=== PATIENT | female | born 1965 | race Caucasian/White ===

== ENCOUNTER 2017-07-27 19:21 | Emergency (ER) | END 2017-07-27 21:46 | disposition home or self-care (01) ==

== ENCOUNTER 2018-05-29 11:44 | Emergency (ER) | payer SELFPAY ==
[~2018-05-29] VITALS: Ht 157.5 cm; Wt 86.1 kg
[~2018-05-29 11:44] MED LIST: CEPH-443 PO; HYDR-3498 PO; IBUP-1542 PO; METH-493 PO; PHEN-717 PO
[2018-05-29 11:47] VITALS: BP 127/78; PULSE 88; RESP 18; Ht 157.5 cm; Wt 86.1 kg
[2018-05-29] MEDS ORDERED: ONDANSETRON (ODT) 4 MG TAB ODT STA (12:49)
[2018-05-29] MEDS ORDERED: KETOROLAC 30 MG INJ IM STA (12:49)
[2018-05-29] MEDS ORDERED: BENZ200C68 PO (12:52)
[2018-05-29] MEDS ORDERED: ONDA4TAB14 PO (12:52)
--- NOTE | 2018-05-29 17:34 | ERD ---
ER Documentation Chief Complaint Chief Complaint dizziness, Nausea, body weakness, head pain x 1 day HPI This is a 52-year-old female who presents with complaint of dizziness, nausea, headache. She is also complaining of chronic left lower back pain. Denies fever, denies sick contacts, denies photophobia, eyes dysuria. Patient does smoke cigarettes and admits that this exacerbates her cough. States that she has not been eating very well over the last couple of days because she is not feeling well and has not had much to eat or drink in the last 24 hours. 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 She also has history of seasonal allergies and has runny nose, cough, itchy throat. ROS All systems reviewed and are negative except as per history of present illness. Medications Home Meds Active Scripts Benzonatate* (Benzonatate*) 200 Mg Capsule, 200 MG PO QHS PRN for COUGH for 7 Days, #10 CAP Prov:MICKEY DE LA GARZA NP 05/29/18 Ondansetron (Ondansetron Odt) 4 Mg Tab.rapdis, 4 MG PO Q6H PRN for NAUSEA AND/OR VOMITING, #10 TAB Prov:MICKEY DE LA GARZA NP 05/29/18 Phenazopyridine Hcl* (Phenazopyridine Hcl*) 200 Mg Tablet, 200 MG PO TID, #10 TAB Prov:WILLIS GUZMAN PA-C 07/27/17 Cephalexin* (Keflex*) 500 Mg Capsule, 500 MG PO Q6, #40 CAP Prov:WILLIS GUZMAN PA-C 07/27/17 Ibuprofen* (Motrin*) 600 Mg Tab, 600 MG PO Q6H PRN for PAIN AND OR ELEVATED TEMP, #30 Prov:ELIZ HUANG MD 02/05/15 Hydrocodone Bit-Acetaminophen* ([place]*) 5-325 Mg Tab, 1 TAB PO Q6 PRN for PAIN, #12 TAB Prov:ELIZ HUANG MD 02/05/15 Reported Medications Methimazole* (Methimazole*) 5 Mg Tablet, 5 MG PO TID 07/20/12 Allergies Allergies: Coded Allergies: No Known Allergy (Verified , 05/29/18) PMhx/Soc Medical and Surgical Hx: pt denies Surgical Hx History of Surgery: Yes (total hysterectomy; caesarain section) Anesthesia Reaction: No Hx Neurological Disorder: No Hx Respiratory Disorders: No Hx Cardiac Disorders: No Hx Psychiatric Problems: No Hx Miscellaneous Medical Probl: Yes (HX OF CERVICAL CANCER ) Hx Alcohol Use: Yes (SOCIALLY) Hx Substance Use: No Hx Tobacco Use: Yes (1/2 pack a day) Smoking Status: Never smoker FmHx Family History: No diabetes, No coronary disease, No other Physical Exam Vitals Vital Signs Date Temp Pulse Resp B/P (MAP) Pulse Ox O2 O2 Flow FiO2 Time Delivery Rate 05/29/18 97.4 88 18 127/78 98 11:47 (94) Physical Exam Const: No acute distress Head: Atraumatic Eyes: Normal Conjunctiva, PERRL, EOMI ENT: Normal External Ears, Nose and Mouth. Pharynx pink, no lesions, no exudate Neck: Full range of motion. No meningismus. Resp: Clear to auscultation bilaterally Cardio: Regular rate and rhythm, no murmurs Abd: Soft, non tender, non distended. Normal bowel sounds Skin: No petechiae or rashes Back: No midline or flank tenderness Ext: No cyanosis, or edema Neur: Awake and alert, no facial droop, no cranial tenderness, no paresthesia, CNII-XII intact Psych: Normal Mood and Affect Results 24 hrs Current Medications Medications Dose Sig/Jimmie Start Time Status Last (Trade) Ordered Route PRN Stop Time Admin Dose Reason Admin Ondansetron 4 mg ONCE STAT 05/29/18 DC 05/29/18 HCl (Zofran ODT 12:49 12:56 Odt) 05/29/18 12:50 Ketorolac 30 mg ONCE STAT 05/29/18 DC 05/29/18 Tromethamine IM 12:49 12:56 (Toradol) 05/29/18 12:50 Procedures/MDM This 52-year-old female presents with multiple complaints. Her primary concern is headache pain and nausea. This patients evaluation indicates a benign cause of headache very likely. The most serious possible causes of headache, including hemorrhage and infection have been excluded based upon todays assessment. No e/o meningitis, intracranial bleed, seizure, stroke. Patient refusing urine test to rule out UTI as cause of symptoms. Patient was treated with Zofran and Toradol with improvement in symptoms. Structured patient on use of antihistamines including Claritin or Zyrtec, patient declined nasal steroids or antihistamines, instructed patient to quit smoking and avoid triggers. The patient has been instructed to return immediately for worsening symptoms, change in pattern of current symptoms, or other acute problems. Departure Diagnosis: Primary Impression: Headache Condition: Stable Patient Instructions: Self-Care for Headaches, Getting Support for Quitting Smoking, Allergic Rhinitis Additional Instructions: Call your primary care doctor TOMORROW for an appointment during the next 2-3 days.See the doctor sooner or return here if your condition worsens before your appointment time. Use Claritin or Zyrtec for environmental allergy symptoms Use Zofran 30 minutes prior to hydration Continue to use narcotics prescribed by primary care doctor and ibuprofen for pain Use cough medicine at bedtime STOP SMOKING MICKEY DE LA GARZA NP May 29, 2018 17:29
== END 2018-05-29 13:27 | disposition home or self-care (01) ==
LOC: FTE 11:44
DX: R51 Headache (principal); R11.0 Nausea; Z85.41 Personal history of malignant neoplasm of cervix uteri; Z87.891 Personal history of nicotine dependence
CPT/HCPCS: 96372; 99284; J1885